=== PATIENT | male | born 2000 | race Caucasian/White ===

== ENCOUNTER 2023-01-15 09:37 | Emergency (ER) | payer MEDICAID ==
[~2023-01-15] VITALS: Ht 172.7 cm; Wt 80.0 kg
[~2023-01-15 09:37] MED LIST: TOPUD PO
[2023-01-15 09:53] VITALS: O2SAT 100
[2023-01-15] MEDS ORDERED: ONDANSETRON 4MG ODT PO ONE (10:45)
[2023-01-15] MEDS ORDERED: KETOROLAC 60MG/2ML VIAL IM ONE (10:45)
[2023-01-15] MEDS ORDERED: IBUP-2030 MT (12:12)
[2023-01-15 12:50] VITALS: BP 126/68; PULSE 64; RESP 18; TEMP 98.2
== END 2023-01-15 12:53 | disposition home or self-care (01) ==
LOC: ER 09:55
DX: G43.909 Migraine, unspecified, not intractable, without status migrainosus (principal)
CPT/HCPCS: 70450; 96372; 99285; Q0162; J1885; Z7610